=== PATIENT | male | born 1940 | race Hispanic/Latino ===

== ENCOUNTER → 2023-06-25 | Outpatient (CLI) | payer OTHER, MEDICARE ==
[2023-06-25 11:58] LABS: BASOPHILS # (AUTO) 0.06 K/uL (0.00-0.20); BASOPHILS % (AUTO) 0.6 % (0.0-5.0); EOSINOPHILS # (AUTO) 0.41 K/uL (0.00-0.70); EOSINOPHILS % (AUTO) 3.8 % (0.0-8.0); IMMATURE GRANULOCYTE ABSOLUTE 0.07 K/uL (0-1); LYMPHOCYTES # (AUTO) 2.2 K/uL (1.0-4.8); LYMPHOCYTES % (AUTO) 20.8 % (21.0-51.0); MEAN CORPUSCULAR HEMOGLOBIN 31.5 pg (27.0-33.0); MEAN CORPUSCULAR HGB CONC 30.9 g/dL (32.0-36.0); MEAN CORPUSCULAR VOLUME 101.9 fL (79-99); MONOCYTES # (AUTO) 1.1 K/uL (0.1-1.0); MONOCYTES % (AUTO) 10.3 % (3.0-13.0); NEUTROPHILS # (AUTO) 6.9 K/uL (1.8-7.7); NEUTROPHILS % (AUTO) 63.8 % (40.0-77.0); PLATELET COUNT (AUTO) 365 K/uL (130-400); RED BLOOD CELL COUNT(AUTO) 3.24 MIL/uL (4.00-5.50); RED CELL DISTRIBUTION WIDTH 16.8 % (11.0-15.5); WHITE BLOOD COUNT (AUTO) 10.8 K/uL (4.8-10.8)
[2023-06-25 12:21] LABS: CREATININE 1.3 mg/dL (0.5-1.5)
== END | disposition home or self-care (01) ==
LOC: EDSEX 09:22 → LAB 09:22
PROVIDERS: ATTEND Physician Assistant
DX: I10 Essential (primary) hypertension (principal)
CPT/HCPCS: 36415; 80048; 83880; 85025

== ENCOUNTER → 2023-07-16 | Outpatient (CLI) | payer OTHER, MEDICARE ==
[2023-07-16 16:20] LABS: BASOPHILS # (AUTO) 0.06 K/uL (0.00-0.20); BASOPHILS % (AUTO) 0.7 % (0.0-5.0); EOSINOPHILS # (AUTO) 0.33 K/uL (0.00-0.70); EOSINOPHILS % (AUTO) 3.8 % (0.0-8.0); IMMATURE GRANULOCYTE ABSOLUTE 0.06 K/uL (0-1); LYMPHOCYTES # (AUTO) 2.3 K/uL (1.0-4.8); LYMPHOCYTES % (AUTO) 26.2 % (21.0-51.0); MEAN CORPUSCULAR HEMOGLOBIN 31.4 pg (27.0-33.0); MEAN CORPUSCULAR HGB CONC 30.5 g/dL (32.0-36.0); MEAN CORPUSCULAR VOLUME 102.8 fL (79-99); MONOCYTES # (AUTO) 0.8 K/uL (0.1-1.0); MONOCYTES % (AUTO) 9.7 % (3.0-13.0); NEUTROPHILS # (AUTO) 5.1 K/uL (1.8-7.7); NEUTROPHILS % (AUTO) 58.9 % (40.0-77.0); PLATELET COUNT (AUTO) 315 K/uL (130-400); RED BLOOD CELL COUNT(AUTO) 3.89 MIL/uL (4.50-6.20); WHITE BLOOD COUNT (AUTO) 8.7 K/uL (4.8-10.8)
== END | disposition home or self-care (01) ==
LOC: LAB 11:44
PROVIDERS: ATTEND Internal Medicine Cardiovascular Disease
DX: I10 Essential (primary) hypertension (principal)
CPT/HCPCS: 36415; 85025

== ENCOUNTER 2023-09-28 05:35 | Day surgery (SDC) | payer OTHER, MEDICARE ==
[2023-09-27 17:21] VITALS: BP 170/105; PULSE 87; RESP 17
[2023-09-27 17:29] LABS: BASOPHILS # (AUTO) 0.07 K/uL (0.00-0.20); BASOPHILS % (AUTO) 0.7 % (0.0-5.0); EOSINOPHILS # (AUTO) 0.64 K/uL (0.00-0.70); EOSINOPHILS % (AUTO) 6.2 % (0.0-8.0); HEMATOCRIT 48.4 % (42-54); IMMATURE GRANULOCYTE ABSOLUTE 0.04 K/uL (0-1); LYMPHOCYTES # (AUTO) 3.3 K/uL (1.0-4.8); LYMPHOCYTES % (AUTO) 32.3 % (21.0-51.0); MEAN CORPUSCULAR HEMOGLOBIN 30.8 pg (27.0-33.0); MEAN CORPUSCULAR HGB CONC 32.9 g/dL (32.0-36.0); MEAN CORPUSCULAR VOLUME 93.6 fL (79-99); MONOCYTES # (AUTO) 0.8 K/uL (0.1-1.0); NEUTROPHILS # (AUTO) 5.4 K/uL (1.8-7.7); NEUTROPHILS % (AUTO) 52.4 % (40.0-77.0); PLATELET COUNT (AUTO) 239 K/uL (130-400); RED BLOOD CELL COUNT(AUTO) 5.17 MIL/uL (4.50-6.20); RED CELL DISTRIBUTION WIDTH 13.8 % (11.0-15.5); WHITE BLOOD COUNT (AUTO) 10.3 K/uL (4.8-10.8)
[2023-09-27 17:39] LABS: CREATININE 1.1 mg/dL (0.5-1.5); POTASSIUM 3.8 mmol/L (3.5-5.1)
[2023-09-27 17:42] LABS: INR <= 0.93 (0.85-1.15); PROTHROMBIN TIME 10.8 SEC (9.6-11.6)
[2023-09-27 17:44] LABS: PARTIAL THROMBOPLASTIN TIME 27.3 SEC (26.3-35.5)
[~2023-09-28] VITALS: Ht 180.3 cm; Wt 85.7 kg
[2023-09-28] VITALS (8 sets, daily range): BP systolic 121–138; BP diastolic 67–98; PULSE 71–78; RESP 14–20
[~2023-09-28 05:35] MED LIST: APIX5TAB PO; BUDE10.2 PO; FURO20TA4 PO; METO25 PO; ONDA-104 PO; SIMV-43 PO
[2023-09-28] MEDS: 0.9%NACL 1000ML 1,000 ML IV ONE (06:39)
[2023-09-28] MEDS ORDERED: BIMA12.5OS OU (07:01)
[2023-09-28] MEDS ORDERED: COMB5OS OU (07:01)
[2023-09-28] MEDS ORDERED: OMEG100033 PO (07:01)
[2023-09-28] MEDS ORDERED: BUPIVACAINE/PF 0.25% 30ML VIAL IJ ONE (07:10)
[2023-09-28] MEDS ORDERED: MIDAZOLAM HCL 1 MG/ML 2ML VIAL ONE ×3 (07:10→08:33)
[2023-09-28] MEDS ORDERED: MEPERIDINE-PF 25 MG/ML SYG ONE ×3 (07:10→08:33)
[2023-09-28] MEDS ORDERED: LIDOCAINE HCL 1% MDV 50ML VIAL ONE (07:10)
[2023-09-28] MEDS ORDERED: CEFAZOLIN SODIUM 1 GM VIAL ONE (07:11)
[2023-09-28] MEDS ORDERED: IOHEXOL-350 50ML VIAL IV ONE (07:11)
[2023-09-28] MEDS ORDERED: TRAM50TA4 PO (09:44)
[2023-09-28] MEDS ORDERED: METO25 PO (09:44)
[2023-09-28] MEDS ORDERED: ACETAMINOPHEN WITH CODEINE 1 TAB TAB PO PRN (10:00)
[2023-09-28] MEDS ORDERED: ACETAMINOPHEN 500 MG TABLET PO PRN (10:00)
== END 2023-09-28 12:40 | disposition home or self-care (01) ==
LOC: DAH 05:35
PROVIDERS: ATTEND Internal Medicine Cardiovascular Disease
DX: I25.5 Ischemic cardiomyopathy (principal); I48.21 Permanent atrial fibrillation; I11.0 Hypertensive heart disease with heart failure; I50.42 Chronic combined systolic (congestive) and diastolic (congestive) heart failure; I44.7 Left bundle-branch block, unspecified; I25.2 Old myocardial infarction; E78.5 Hyperlipidemia, unspecified; J44.9 Chronic obstructive pulmonary disease, unspecified; K92.2 Gastrointestinal hemorrhage, unspecified; F17.210 Nicotine dependence, cigarettes, uncomplicated; Z82.49 Family history of ischemic heart disease and other diseases of the circulatory system; Z82.5 Family history of asthma and other chronic lower respiratory diseases; Z83.3 Family history of diabetes mellitus; Z80.0 Family history of malignant neoplasm of digestive organs; Z87.01 Personal history of pneumonia (recurrent); Z79.01 Long term (current) use of anticoagulants; Z79.899 Other long term (current) drug therapy
CPT/HCPCS: 80048; 85025; 85610; 85730; 36415; 93005; 33225; 33249; 71045; A4223 ×3; C1769; C1882; C1900; C1896; C1895; J0690; J7030; J0665; J2250 ×3; J2175 ×3; J3490; Q9967; A4215; A4222; A4221; A4663; A4216; A4606; 99156; 99157

== ENCOUNTER 2024-04-11 06:38 | Day surgery (SDC) | payer OTHER, MEDICARE ==
[2024-04-09 10:36] VITALS: BP 159/84; PULSE 64; RESP 19; TEMP 98.4
[2024-04-09 10:37] LABS: BASOPHILS # (AUTO) 0.07 K/uL (0.00-0.20); BASOPHILS % (AUTO) 0.8 % (0.0-5.0); EOSINOPHILS % (AUTO) 4.3 % (0.0-8.0); HEMATOCRIT 44.9 % (42-54); IMMATURE GRANULOCYTE ABSOLUTE 0.03 K/uL (0-1); LYMPHOCYTES # (AUTO) 2.3 K/uL (1.0-4.8); LYMPHOCYTES % (AUTO) 24.3 % (21.0-51.0); MEAN CORPUSCULAR HEMOGLOBIN 31.6 pg (27.0-33.0); MEAN CORPUSCULAR HGB CONC 33.4 g/dL (32.0-36.0); MEAN CORPUSCULAR VOLUME 94.7 fL (79-99); MONOCYTES # (AUTO) 0.7 K/uL (0.1-1.0); MONOCYTES % (AUTO) 7.9 % (3.0-13.0); NEUTROPHILS # (AUTO) 5.8 K/uL (1.8-7.7); NEUTROPHILS % (AUTO) 62.4 % (40.0-77.0); PLATELET COUNT (AUTO) 233 K/uL (130-400); RED BLOOD CELL COUNT(AUTO) 4.74 MIL/uL (4.50-6.20); RED CELL DISTRIBUTION WIDTH 13.2 % (11.0-15.5); WHITE BLOOD COUNT (AUTO) 9.3 K/uL (4.8-10.8)
[2024-04-09 10:58] LABS: CREATININE 1.2 mg/dL (0.5-1.3); POTASSIUM 4.1 mmol/L (3.5-5.1)
[~2024-04-11] VITALS: Ht 180.3 cm; Wt 86.9 kg
[2024-04-11] VITALS (9 sets, daily range): BP systolic 113–147; BP diastolic 71–96; PULSE 70–77; RESP 12–17; TEMP 97.2–97.5
[~2024-04-11 06:38] MED LIST changes: +ALBU1.252 IH; +ALBUHFA IH; +BIMA12.5OS OU; +BUDE10.2 IH; -BUDE10.2 PO; +COMB5OS OU; +DRON400T7 PO; -METO25 PO; +METO25TA6 PO; +NITR0.4T50 SL; +OMEG12002 PO; -ONDA-104 PO; +TIOT18CA3 IH
--- NOTE | 2024-04-11 06:48 | EKG ---
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
[2024-04-11] MEDS ORDERED: proPOFol 10 MG/ML 20ML VIAL IV ONE (10:08)
--- NOTE | 2024-04-11 14:18 | PRN ---
Procedure Note INDICATION FOR PROCEDURE: Persistent atrial fibrillation PROCEDURE: 1. Cardioversion 2. ICD interrogation and reprogramming x2 DATE OF PROCEDURE: 04/11/2024 APPLICATIONS SUPPORT LEAD: Gretta Platt MD PROCEDURE NOTE: The patient was brought to the day patient area in a fasting state. His ICD was interrogated and reprogrammed. Anesthesia was provided by the anesthesia service. A 40 joule shock was delivered through his device which was unsuccessful in restoring sinus rhythm. A 200 joule synchronized shock was then delivered externally which resulted in sinus rhythm for four beats followed by a recurrent atrial fibrillation. This was preceded by PACs. The device was reprogrammed to pace in the atrium at 100 beats per minute. A 2nd synchronized shock of 200 joules was delivered resulting in about six beats of sinus rhythm followed promptly by recurrent atrial fibrillation. No further attempts were made. The patient tolerated the procedure well. The ICD was again reprogrammed back to its original settings with the exception that the V-V timing was reprogrammed from 0 to 30 milliseconds. This resulted in a more narrow QRS, both on in the monitor and on the far field electrograms of the device. The mode was also changed from VVI-CLS to VVIR in order to enable changes in V-V timing, and LV triggering was turned off. IMPRESSION: Status post successful cardioversion with prompt recurrence back to atrial fibrillation. PLAN: 1. We will discontinue Multaq 2. Start oral amiodarone load 3. Follow-up in office in approximately 3-4 weeks 4. We will repeat cardioversion following oral amiodarone load. TOMMY VINCENT MD Apr 11, 2024 14:18
[2024-05-14] MEDS ORDERED: APIX5TAB PO (14:22)
[2024-05-14] MEDS ORDERED: AMIO200T68 PO (14:22)
[2024-05-14] MEDS ORDERED: METO-408 PO (14:22)
[2024-05-14] MEDS ORDERED: TIOT18CA3 IH (14:22)
[2024-05-16] MEDS ORDERED: METO-391 PO (09:33)
== END 2024-04-11 12:10 | disposition home or self-care (01) ==
LOC: DAH 06:38
PROVIDERS: ATTEND Internal Medicine Cardiovascular Disease
DX: I48.19 Other persistent atrial fibrillation (principal); I11.0 Hypertensive heart disease with heart failure; I50.22 Chronic systolic (congestive) heart failure; J44.9 Chronic obstructive pulmonary disease, unspecified; I25.2 Old myocardial infarction; E78.5 Hyperlipidemia, unspecified; Z79.01 Long term (current) use of anticoagulants; Z79.899 Other long term (current) drug therapy
CPT/HCPCS: 80048; 85025; 36415; 93005; 92960; A4620 ×2; A4223 ×3; J2704; A4215; A4222; A4221; A4663; A4216; A4606; J3490

== ENCOUNTER 2024-05-30 01:14 | Emergency (ER) | payer OTHER, MEDICARE ==
[~2024-05-30] VITALS: Ht 180.3 cm; Wt 87.1 kg
[~2024-05-30 01:14] MED LIST changes: -DRON400T7 PO; +METO-391 PO; +METO-408 PO; -METO25TA6 PO
[2024-05-30 01:15] VITALS: TEMP 98.4
[2024-05-30 02:10] LABS: BASOPHILS # (AUTO) 0.07 K/uL (0.00-0.20); BASOPHILS % (AUTO) 0.6 % (0.0-5.0); EOSINOPHILS # (AUTO) 0.55 K/uL (0.00-0.70); EOSINOPHILS % (AUTO) 4.9 % (0.0-8.0); HEMATOCRIT 45.2 % (42-54); IMMATURE GRANULOCYTE ABSOLUTE 0.07 K/uL (0-1); LYMPHOCYTES # (AUTO) 2.8 K/uL (1.0-4.8); LYMPHOCYTES % (AUTO) 24.9 % (21.0-51.0); MEAN CORPUSCULAR HEMOGLOBIN 32.1 pg (27.0-33.0); MEAN CORPUSCULAR HGB CONC 33.2 g/dL (32.0-36.0); MEAN CORPUSCULAR VOLUME 96.6 fL (79-99); NEUTROPHILS # (AUTO) 6.7 K/uL (1.8-7.7); PLATELET COUNT (AUTO) 212 K/uL (130-400); RED BLOOD CELL COUNT(AUTO) 4.68 MIL/uL (4.50-6.20); RED CELL DISTRIBUTION WIDTH 14.1 % (11.0-15.5); WHITE BLOOD COUNT (AUTO) 11.2 K/uL (4.8-10.8)
[2024-05-30 02:19] LABS: CREATININE 1.4 mg/dL (0.5-1.3); POTASSIUM 4.4 mmol/L (3.5-5.1)
[2024-05-30] MEDS: Solu-medROL 125MG VIAL IVP ONE (02:25)
[2024-05-30] MEDS: hydroMORPHone 0.5 MG SYG (0.5MG/0.5ML) IVP ONE (02:25)
[2024-05-30] MEDS: 0.9% NACL 500ML IV.SOLN 500 ML IV ONE (02:58)
[2024-05-30] MEDS ORDERED: IOHEXOL 350 MG/ML 100ML INFUS..BTL IV ONE (03:12)
[2024-05-30 03:31] LABS: APPEARANCE,URINE CLEAR (CLEAR); BILIRUBIN,URINE NEGATIVE (NEGATIVE); COLOR,URINE LIGHT-YELLOW (YELLOW); GLUCOSE, URINE (UA) NEGATIVE (NEGATIVE); KETONES,URINE NEGATIVE (NEGATIVE); LEUKOCYTE ESTERASE ,URINE NEGATIVE Leu/uL (NEGATIVE); NITRATE,URINE NEGATIVE (NEGATIVE); OCCULT BLOOD,URINE NEGATIVE (NEGATIVE); PROTEIN,URINE NEGATIVE (NEGATIVE); UROBILINOGEN,URINE 0.2 mg/dL (0.2-1.0)
[2024-05-30 03:32] LABS: ADD UA MICROSCOPIC NO
[2024-05-30] MEDS ORDERED: METH-662 PO (09:42)
[2024-05-30] MEDS ORDERED: TYL2 PO (09:42)
[2024-05-30 09:48] VITALS: BP 117/84; PULSE 70; RESP 17; O2SAT 96
== END 2024-05-30 09:59 | disposition home or self-care (01) ==
LOC: EDH 01:14
DX: I72.9 Aneurysm of unspecified site (principal); M25.551 Pain in right hip; E78.00 Pure hypercholesterolemia, unspecified; I25.10 Atherosclerotic heart disease of native coronary artery without angina pectoris; I48.91 Unspecified atrial fibrillation; I50.9 Heart failure, unspecified; Z79.01 Long term (current) use of anticoagulants; Z79.51 Long term (current) use of inhaled steroids; Z79.899 Other long term (current) drug therapy; Z95.0 Presence of cardiac pacemaker
CPT/HCPCS: 99285; 74174; 96374; 71045; 96375; 80048; 85025; 81003; 36415; 93005; J7040; J2919; J1171; Q9967

== ENCOUNTER → 2024-10-10 | Outpatient (CLI) | payer OTHER, MEDICARE ==
[~2024-10-10] MED LIST changes: +METH-662 PO; +TYL2 PO
[2024-10-10 12:38] LABS: CREATININE 1.1 mg/dL (0.5-1.3); POTASSIUM 4.3 mmol/L (3.5-5.1)
== END | disposition home or self-care (01) ==
LOC: LAB 09:06
PROVIDERS: ATTEND Internal Medicine Cardiovascular Disease
DX: I10 Essential (primary) hypertension (principal)
CPT/HCPCS: 36415; 80048

== ENCOUNTER → 2024-10-14 | Outpatient (CLI) | payer OTHER, MEDICARE ==
[~2024-10-14] MED LIST changes: +IOHEXOL 350 MG/ML 100ML INFUS..BTL IV ONE
--- NOTE | 2024-10-14 10:33 | HMCIMG ---
CT ANGIO ABD/PEL PRE AAA 3MM HISTORY: Abdominal aorta aneurysm COMPARISON: None TECHNIQUE: CT angiography of the abdomen and pelvis was obtained using angiographic technique with maximum intensity projection reconstruction images. Patient was not given contrast through intravenous route. Oral contrast was not given. FINDINGS: No pleural effusion is seen bilaterally. There is no evidence of parenchymal disease or pulmonary nodule of the visualized lower lungs. Degenerative changes of the thoracolumbar spine are present. The heart is not enlarged. Gallstone is seen in the gallbladder. The liver, spleen, adrenal glands and pancreas are unremarkable. There is no evidence of hydronephrosis bilaterally. No evidence of renal stone is seen. There is right lower pole renal cortical scarring. Note is again made of area with poor enhancement in the lower pole of the right kidney inferiorly and medially suggestive of renal infarct unchanged. There is diverticulosis. Fecal material is seen in the colon. There are normal size retroperitoneal and mesenteric lymph nodes. No ascites is seen. CT evidence of acute appendicitis is seen. There is diffuse atherosclerotic disease. There is saccular infrarenal abdominal aortic aneurysm measuring 3.6 x 2.9 cm with thrombus formation. No leakage is seen. There is also infrarenal abdominal aortic aneurysm near the aortic bifurcation measuring 2.9 x 2.8 cm. The celiac, superior mesenteric and bilateral renal arteries are grossly patent. The visualized portion of the iliac and femoral arterial systems are also grossly patent. Pelvic sidewalls are symmetric bilaterally. Bladder is well distended without wall thickening. Prostate gland is enlarged measuring 6.6 x 5.6 cm. IMPRESSION: 1. Gallstone in the gallbladder. 2. Infrarenal abdominal aortic aneurysm as described above. 3. Diverticulosis. No ascites CT was performed with one or more following dose reduction techniques: automated exposure control, adjustment of the mA and kv according to patient's size, or use of a iterative reconstruction technique.
== END | disposition home or self-care (01) ==
LOC: RAH 08:21
PROVIDERS: ATTEND Internal Medicine Cardiovascular Disease
DX: K80.20 Calculus of gallbladder without cholecystitis without obstruction (principal); I71.40 Abdominal aortic aneurysm, without rupture, unspecified; K57.90 Diverticulosis of intestine, part unspecified, without perforation or abscess without bleeding; I71.43 Infrarenal abdominal aortic aneurysm, without rupture; I70.0 Atherosclerosis of aorta
CPT/HCPCS: 74174; Q9967

== ENCOUNTER → 2024-12-12 | Outpatient (CLI) | payer OTHER, MEDICARE ==
[~2024-12-12] MED LIST changes: -IOHEXOL 350 MG/ML 100ML INFUS..BTL IV ONE
[2024-12-12 12:21] LABS: CREATININE 1.1 mg/dL (0.5-1.3); POTASSIUM 4.6 mmol/L (3.5-5.1)
== END | disposition home or self-care (01) ==
LOC: LAB 09:03
PROVIDERS: ATTEND Internal Medicine Cardiovascular Disease
DX: I10 Essential (primary) hypertension (principal)
CPT/HCPCS: 36415; 80048

== ENCOUNTER 2025-02-04 08:09 | Day surgery (SDC) | payer OTHER, MEDICAID ==
[2025-02-03 12:01] LABS: BASOPHILS # (AUTO) 0.06 K/uL (0.00-0.20); BASOPHILS % (AUTO) 0.6 % (0.0-5.0); EOSINOPHILS # (AUTO) 0.59 K/uL (0.00-0.70); EOSINOPHILS % (AUTO) 6.3 % (0.0-8.0); HEMATOCRIT 47.1 % (42-54); IMMATURE GRANULOCYTE ABSOLUTE 0.03 K/uL (0-1); LYMPHOCYTES # (AUTO) 2.5 K/uL (1.0-4.8); LYMPHOCYTES % (AUTO) 26.6 % (21.0-51.0); MEAN CORPUSCULAR HGB CONC 33.1 g/dL (32.0-36.0); MEAN CORPUSCULAR VOLUME 96.7 fL (79-99); MONOCYTES # (AUTO) 0.9 K/uL (0.1-1.0); MONOCYTES % (AUTO) 9.5 % (3.0-13.0); NEUTROPHILS # (AUTO) 5.3 K/uL (1.8-7.7); NEUTROPHILS % (AUTO) 56.7 % (40.0-77.0); PLATELET COUNT (AUTO) 199 K/uL (130-400); RED BLOOD CELL COUNT(AUTO) 4.87 MIL/uL (4.50-6.20); RED CELL DISTRIBUTION WIDTH 13.8 % (11.0-15.5); WHITE BLOOD COUNT (AUTO) 9.4 K/uL (4.8-10.8)
--- NOTE | 2025-02-03 12:05 | EKG ---
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
[2025-02-03 12:10] LABS: POTASSIUM 4.5 mmol/L (3.5-5.1)
[2025-02-03 12:11] VITALS: BP 148/83; PULSE 77; RESP 17; TEMP 98.6
[2025-02-03 12:11] LABS: INR 0.99 (0.85-1.15); PROTHROMBIN TIME 10.5 SEC (9.6-11.6)
[2025-02-03 12:12] LABS: PARTIAL THROMBOPLASTIN TIME 25.9 SEC (26.3-35.5)
[2025-02-03 12:17] LABS: APPEARANCE,URINE CLEAR (CLEAR); BILIRUBIN,URINE NEGATIVE (NEGATIVE); COLOR,URINE COLORLESS (YELLOW); GLUCOSE, URINE (UA) NEGATIVE (NEGATIVE); KETONES,URINE NEGATIVE (NEGATIVE); LEUKOCYTE ESTERASE ,URINE NEGATIVE Leu/uL (NEGATIVE); NITRATE,URINE NEGATIVE (NEGATIVE); OCCULT BLOOD,URINE NEGATIVE (NEGATIVE); PROTEIN,URINE NEGATIVE (NEGATIVE); UROBILINOGEN,URINE 0.2 mg/dL (0.2-1.0)
[2025-02-03 12:25] LABS: ADD UA MICROSCOPIC NO
--- NOTE | 2025-02-03 12:26 | HMCIMG ---
CHEST 1VW HISTORY: Preop COMPARISON: 05/30/2024 FINDINGS: A frontal projection of the chest was obtained. No acute pulmonary infiltrates is seen. The heart is borderline enlarged. Pacemaker is seen entering from the left. No evidence of aortic calcification is seen. IMPRESSION: 1. No acute pulmonary infiltrate is seen.
[2025-02-03 12:28] LABS: B-TYPE NATRIURETIC PEPTIDE 253 pg/mL (0-100)
[~2025-02-04] VITALS: Ht 180.3 cm; Wt 90.0 kg
[2025-02-04] VITALS (11 sets, daily range): BP systolic 122–176; BP diastolic 66–96; PULSE 70–77; RESP 16–25; TEMP 97.2–97.4
[~2025-02-04 08:09] MED LIST changes: -ALBU1.252 IH; -COMB5OS OU; -METH-662 PO; -METO-391 PO; -METO-408 PO; +OMEG100033 PO; -TYL2 PO
[2025-02-04] MEDS: 0.9%NACL 1000ML 1,000 ML IV SCH (08:45)
[2025-02-04] MEDS ORDERED: METO50TA9 PO (08:50)
[2025-02-04] MEDS ORDERED: SODIUM BICARB 50MEQ 50ML VIAL 50 ML ONE (11:24)
[2025-02-04] MEDS ORDERED: LIDOCAINE HCL 400MG/20ML VIAL ONE (11:24)
[2025-02-04] MEDS ORDERED: IOHEXOL 350 MG/ML 100ML INFUS..BTL IV ONE (11:25)
[2025-02-04] MEDS ORDERED: NITROGLYCERIN 50MG VIAL ONE (11:25)
[2025-02-04] MEDS ORDERED: HEParin 10,000 UNIT/10ML (1,000 UNIT/ML) VIAL ONE (11:25)
[2025-02-04] MEDS ORDERED: HEParin-NS 1,000 UNIT/500 ML 1,000 ML IV ONE (11:25)
[2025-02-04] MEDS ORDERED: niCARDIpine 25MG INJ IV ONE (11:42)
[2025-02-04] MEDS ORDERED: FENTanyl CITRate PF 50 MCG/1 ML 2ML VIAL ONE (11:45)
[2025-02-04] MEDS ORDERED: MIDAZOLAM HCL 1 MG/ML 2ML VIAL ONE ×2 (11:45→11:52)
[2025-02-04] MEDS ORDERED: cloPIDOgrel 300MG TAB ONE (12:33)
[2025-02-04] MEDS ORDERED: ASPIRIN 325MG EC TAB PO ONE (12:33)
[2025-02-04] MEDS ORDERED: 0.9%NACL 1000ML 1,000 ML IV SCH (13:00)
--- NOTE | 2025-02-04 14:11 | NUR ---
REPORT: REPORT GIVEN TO JESSENIA LARA RN
--- NOTE | 2025-02-04 16:12 | CCATH ---
PROCEDURES: * Left heart catheterization. * Selective right and left diagnostic coronary arteriogram. * Balloon angioplasty and stent placement in the proximal LAD. * Conscious sedation for 60 minutes. INDICATIONS: * Known history of coronary artery disease. * Ischemic cardiomyopathy with advanced LV dysfunction. * Status post remote coronary artery stenting. * Abnormal coronary CT angiography. COMPLICATIONS: None. TOTAL CONTRAST: 80 mL. APPROACH: Right radial approach. DESCRIPTION OF PROCEDURE: The patient was taken to the Cardiac Catheterization Lab after appropriate operative consent was signed. He was prepped and draped in the usual fashion. After conscious sedation was administered, the right radial artery was infiltrated with 2% Xylocaine without epinephrine. At this point, a slender radial sheath was advanced in a retrograde fashion via modified Seldinger technique. The radial cocktail was administered. TIG-4 catheter was advanced over an indwelling wire and placed in the left ventricular cavity. Left ventricular end-diastolic pressure measurement was obtained. Ventriculography was deferred. The patient had severe ischemic cardiomyopathy with advanced LV dysfunction, EF of 25% by noninvasive study. Pullback revealed no aortic stenosis. At this point, the catheter was engaged in the ostium of the left main. This was imaged in multiplane. The left main was a large vessel that was calcified and an ostial 30% to 40% lesion that was not accompanied by catheter dampening or ventricularization. The left main was otherwise free of disease. It trifurcated in the LAD, intermediate, and circumflex. The circumflex was a small artery, gave rise to a distal small OM and had a 40% lesion in its mid portion. The intermediate was a large branching vessel that had a hazy 50% ostial lesion. The superior branch of the intermediate vessel had a 30% lesion. The inferior branch was free of disease. The LAD was a large vessel that gave rise to several small diagonals and septal perforators. The LAD had what appears to be a stent in its proximal to mid portion that had severe in-stent restenosis at 80% with 90% stenotic lesion just distal to the stent. The area of stenosis was long. There was slow flow in the LAD rated at LOGAN 2. At this point, the decision was made to proceed with revascularization of the LAD. We selected an XB 3.5 guide catheter, which was selectively engaged in the ostium of the left main. After full heparinization, a 0.014 wire was advanced to position the distal LAD. At this point, we proceeded with placement of a 3.0 x 38 [place] stent, which was placed in the area of stenosis abutting the ostium of the LAD. The stent was deployed to 14 atmospheres at 3.10 mm size. The final angiographic result was good. We established LOGAN 3 flow. The lesion was excluded. The patient tolerated the procedure well and left the Cardiac Catheterization Lab in stable condition. The right coronary artery was engaged with catheter and imaged in multiple planes. This had a patent stent in its mid portion that was patent. There was a 40% stenotic lesion distal to the RCA before it bifurcated into PDA and PLVB. At the end of the procedure, the patient had adequate flow in the left anterior descending with no evidence of compromise. LOGAN 3 flow was reestablished. FINAL IMPRESSION: * Severe coronary artery disease. * Ischemic cardiomyopathy with advanced LV dysfunction, EF of 25%. * No aortic stenosis. * Patent RCA stent. * Severe in-stent restenosis in the LAD with a LOGAN 2 flow. * Successful balloon angioplasty and stent placement in the proximal mid LAD with a 3.0 x 38 [place] inflated to 14 atmospheres at 3.1 mm size with good angiographic results. PLAN: Continue medical management. TID: [id number] RECEIPT: [id number]
--- NOTE | 2025-02-04 16:20 | NUR ---
vasband removed at this time. site clean dry and intact. no signs of bleeding noted. site dressed with sterile 2x2 gauze and tegaderm dressing.
== END 2025-02-04 16:50 | disposition home or self-care (01) ==
LOC: DAH 08:09
PROVIDERS: ATTEND Internal Medicine Cardiovascular Disease
DX: R93.1 Abnormal findings on diagnostic imaging of heart and coronary circulation (principal); I25.118 Atherosclerotic heart disease of native coronary artery with other forms of angina pectoris; T82.855A Stenosis of coronary artery stent, initial encounter; I11.0 Hypertensive heart disease with heart failure; I50.42 Chronic combined systolic (congestive) and diastolic (congestive) heart failure; I44.7 Left bundle-branch block, unspecified; I48.91 Unspecified atrial fibrillation; E78.5 Hyperlipidemia, unspecified; I25.2 Old myocardial infarction; I48.21 Permanent atrial fibrillation; E78.2 Mixed hyperlipidemia; I71.40 Abdominal aortic aneurysm, without rupture, unspecified; D68.69 Other thrombophilia; Z95.810 Presence of automatic (implantable) cardiac defibrillator; Y71.2 Prosthetic and other implants, materials and accessory cardiovascular devices associated with adverse incidents; Z79.01 Long term (current) use of anticoagulants; Z79.899 Other long term (current) drug therapy
CPT/HCPCS: 80048; 83880; 85025; 85610; 85730; 81003; 36415; 71045; 93005; 85347; 93458; 99156; 99157 ×3; C9600; C1769 ×3; C1874; C1894; C1887; J3010; J3490 ×4; J7030; J1644 ×2; J2250 ×2; Q9967; A4215; A4222; A4221; A4663; A4216; A4606; Q9965; A4223 ×3